=== PATIENT | male | born 1965 | race Two or more races ===

== ENCOUNTER 2025-03-19 10:19 | Emergency (ER) | payer MEDICAID, OTHER ==
[~2025-03-19] VITALS: Ht 193 cm; Wt 138.9 kg
--- NOTE | 2025-03-19 10:50 | ED.PDOC ---
History of Present Illness HPI Comments 59-year-old male brought in by private car requesting evaluation for alcohol dependence. Patient states his employer advised him he should seek help for alcohol dependence. Patient reports drinking 6 beers and a bottle of Tequila daily. He states he has done this for the past 30 years. His last drink was yesterday. States he currently feels anxious and shaky. He denies any pain, nausea/vomiting, seizure or loss of consciousness. 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 Constitutional: denies: chills, diaphoresis, fatigue, fever, malaise, sweats, weakness, others EENTM: denies: blurred vision, double vision, ear bleeding, ear discharge, ear drainage, ear pain, ear ringing, eye pain, eye redness, hearing loss, mouth pain, mouth swelling, nasal discharge, nose bleeding, nose congestion, nose pain, photophobia, tearing, throat pain, throat swelling, voice changes, others Respiratory: denies: cough, hemoptysis, orthopnea, SOB at rest, shortness of breath, SOB with excertion, stridor, wheezing, others Cardiovascular: denies: chest pain, dizzy spells, diaphoresis, Dyspnea on exertion, edema, irregular heart beat, left arm pain, lightheadedness, palpitations, PND, syncope, others Gastrointestinal: denies: abdomen distended, abdominal pain, blood streaked bowels, constipated, diarrhea, dysphagia, difficulty swallowing, hematemesis, melena, nausea, poor appetite, poor fluid intake, rectal bleeding, rectal pain, vomiting, others Genitourinary: denies: burning, dysuria, flank pain, frequency, hematuria, incontinence, penile discharge, penile sore, pain, testicle pain, testicle swelling, urgency, others Neurological: denies: dizziness, fainting, headache, left sided numbness, left sided weakness, numbness, paresthesia, pre-existing deficit, right sided numbness, right sided weakness, seizure, speech problems, tingling, tremors, weakness, others Musculoskeletal: denies: back pain, gout, joint pain, joint swelling, muscle pain, muscle stiffness, neck pain, others Integumetry: denies: bruises, change in color, change in hair/nails, dryness, laceration, lesions, lumps, rash, wounds, others Allergic/Immunocompromised: denies: Difficulty Healing, Frequent Infections, Hives, Itching, others Hematologic/Lymphatic: denies: anemia, blood clots, easy bleeding, easy bruising, swollen glands, others Endocrine: denies: excessive hunger, excessive sweating, excessive thirst, excessive urination, flushing, intolerance to cold, intolerance to heat, unexpl ained weight gain, unexplained weight loss, others Psychiatric: reports: anxiety; denies: bipolar disorder, depression, hopeless, panic disorder, schizophrenia, sleepless, suicidal, others All Other Systems: Reviewed and Negative (Comprehensive systems review obtained and negative except for what is stated in the HPI.) Physical Exam General Appearance: Mild Distress, Obese HEENT: Other (Pupils and face symmetric. Moist mucous membranes.) Neck: Full Range of Motion, Normal Inspection Respiratory: Lungs Clear, No Accessory Muscle Use, No Respiratory Distress, Normal Breath Sounds Cardiovascular: No Edema, No JVD, Regular Rate/Rhythm Breast Exam: Deferred Gastrointestinal: Non Tender, Soft Genitalia: Deferred Pelvic: Deferred Rectal: Deferred Extremities: Normal inspection, Normal range of motion, Non-tender, No pedal edema Neurologic: Alert (Oriented x4), Other (Anxious. Ambulatory. Mildly tremulous.) Cerebellar Function: NOT DONE Reflexes: NOT DONE Skin: Dry, Normal Color, Warm Lymphatic: NOT DONE Was a procedure done? Was a procedure done?: No Differential Dx Considerations may include: Alcohol withdrawal, anxiety, electrolyte imbalance, dehydration, alcohol/drug dependence/intoxication, among others X-Ray, Labs, Meds, VS Vital Signs Date Time Temp Pulse Resp B/P (MAP) Pulse Ox O2 Delivery O2 Flow Rate FiO2 03/19/25 15:09 75 18 127/77 (94) 95 03/19/25 13:20 67 18 119/67 (84) 97 8/14/25 11:25 Room Air* 0 21 03/19/25 11:20 98.4 69 18 131/80 (97) 95 98.4 03/19/25 11:16 96 17 95 Room Air 03/19/25 11:16 98.4 96 17 131/80 (97) 95 98.4 03/19/25 10:23 97.3 88 16 143/81 96 97.3 Lab Test 03/19/25 11:11 03/19/25 10:55 Range/Units White Blood Count 5.7 4.4-10.8 10^3/uL Red Blood Count 5.68 4.5-5.90 10^6/uL Hemoglobin 16.4 13.5-17.5 g/dL Hematocrit 46.7 41.0-53.0 % Mean Corpuscular Volume 82.2 80.0-100.0 fL Mean Corpuscular Hemoglobin 28.8 28.0-32.0 pg Mean Corpuscular Hemoglobin Concent 35.1 32.0-36.0 g/dL Red Cell Distribution Width 14.1 11.8-14.3 % Platelet Count 199 140-450 10^3/uL Mean Platelet Volume 7.2 6.9-10.8 fL Neutrophils (%) (Auto) 47.1 37.0-80.0 % Lymphocytes (%) (Auto) 39.2 10.0-50.0 % Monocytes (%) (Auto) 10.4 0.0-12.0 % Eosinophils (%) (Auto) 2.6 0.0-7.0 % Basophils (%) (Auto) 0.7 0.0-2.0 % Neutrophils # (Auto) 2.7 1.6-8.6 10 ^3/uL Lymphocytes # (Auto) 2.2 0.4-5.4 10 ^3/uL Monocytes # (Auto) 0.6 0-1.3 10 ^3/uL Eosinophils # (Auto) 0.1 0-0.8 10 ^3/uL Basophils # (Auto) 0 0-0.2 10 ^3/uL Nucleated Red Blood Cells 0.2 % Sodium Level 142 136-145 mmol/L Potassium Level 4.0 3.5-5.1 mmol/L Chloride Level 108 H 98-107 mmol/L Carbon Dioxide Level 25 20-31 mmol/L Anion Gap 9 5-15 Blood Urea Nitrogen 11 9-23 mg/dL Creatinine 1.21 0.700-1.30 mg/dL Glomerular Filtration Rate Calc 69 >90 mL/min BUN/Creatinine Ratio 9.1 L 10.0-20.0 Serum Glucose 92 74-106 mg/dL Calcium Level 8.9 8.7-10.4 mg/dL Plasma/Serum Blood Alcohol < 3.0 <10 mg/dL Urine Color Light-yellow Yellow Urine Clarity Clear Clear Urine pH 7.0 5.0-9.0 Urine Specific [place] 1.012 1.001-1.035 Urine Protein Negative Negative Urine Ketones Negative Negative Urine Blood Negative Negative /uL Urine Nitrite Negative Negative Urine Bilirubin Negative Negative Urine Urobilinogen Normal Negative mg/dL Urine Leukocyte Esterase Negative Negative /uL Urine RBC 4 0 - 3 /hpf Urine Microscopic WBC < 1 0-3 /HPF Urine Squamous Epithelial Cells Few <5 /hpf Urine Bacteria None seen None Seen /hpf Urine Glucose Normal Normal mg/dL Urine Opiates Screen Neg NEGATIVE Urine Fentanyl Screen Neg NEGATIVE Urine Barbiturates Screen Neg NEGATIVE Urine Phencyclidine Screen Neg NEGATIVE Urine Amphetamines Screen Neg NEGATIVE Urine Benzodiazepines Screen Neg NEGATIVE Urine Cocaine Screen Neg NEGATIVE Urine Cannabinoids Screen Neg NEGATIVE Current Medications Medications (Trade) Dose Ordered Sig/Jesica Route Start Time Stop Time Status Last Admin Lorazepam (Ativan Inj) 1 mg ONCE ONCE IV 03/19/25 10:45 03/19/25 10:46 DC 03/19/25 11:49 Sodium Chloride 1,000 ml @ 1,000 mls/hr Q1H ONCE IV 03/19/25 10:45 03/19/25 11:44 DC 03/19/25 11:20 Chlordiazepoxide HCl (Librium Capsule) 50 mg ONCE ONCE PO 03/19/25 10:45 03/19/25 10:46 DC 03/19/25 11:49 X-Ray, Labs, Meds, VS Comment 59-year-old male with a history of alcohol dependence in the hypertension referred by his employer to seek help with alcohol dependence. Patient notes feeling anxious and tremulous. Last drink was yesterday. Vitals remarkable for BP 143/81 Exam remarkable for anxious appearance and mild tremulousness Rhythm strip independently interpreted by me: Sinus rhythm, rate 88, no ectopy. CBC, basic metabolic panel, UA, serum alcohol, urine drug screen unremarkable Patient treated with the following in the ED: 1 L 0.9 normal saline IV bolus, Ativan 1 mg IV, Librium 50 mg p.o. On re-evaluation patient states he feels much better. He is no longer tremulous or anxious. Vitals were stable. Hospitalization was considered, however patient had rapid improvement of symptoms with treatment in the ED, patient stated he prefer not to be hospitalized, and I no longer feel hospitalization is absolutely necessary. Patient now appears stable for discharge with close outpatient follow-up with his primary physician and referrals to alcohol rehab. Rx Ativan, Librium Time of 1ST Reevaluation: 11:10 Reevaluation 1ST: Unchanged Time of 2ND Reevaluation: 13:19 Reevaluation 2ND: Improved Patient Education/Counseling: Diagnosis, Treatment, Need For Follow Up Family Education/Counseling: No Family Present SEPSIS Sepsis Screen Date sepsis recognized/suspect: Mar 19, 2025 Time Sepsis recognized/suspect: 1026 Recent Procedure: No On Antibiotic Therapy: No Respiratory Rate >20: No Heart Rate >90: No Temp<36 C (96.8 F) or >38.3 C: No SBP <90 or MAP <65 mmHG: No New Acute Mental Status Change: No Is the patient on CPAP, BIPAP,: No Physician Orders Electrocardigram (03/19/25 10:43) Saline Lock (03/19/25 10:50) * [employer] Consult (03/19/25 ) Vital Signs Date Time Temp Pulse Resp B/P (MAP) Pulse Ox O2 Delivery O2 Flow Rate FiO2 03/19/25 15:09 75 18 127/77 (94) 95 03/19/25 13:20 67 18 119/67 (84) 97 03/19/25 11:25 Room Air* 0 21 03/19/25 11:20 98.4 69 18 131/80 (97) 95 98.4 03/19/25 11:16 96 17 95 Room Air 03/19/25 11:16 98.4 96 17 131/80 (97) 95 98.4 03/19/25 10:23 97.3 88 16 143/81 96 97.3 Laboratory Tests Test 03/19/25 11:11 White Blood Count 5.7 10^3/uL (4.4-10.8) Medications Medications Dose Ordered Sig/Jesica Route Start Time Stop Time Status Last Admin Dose Admin Chlordiazepoxide HCl 50 mg ONCE ONCE PO 03/19/25 10:45 03/19/25 10:46 DC 03/19/25 11:49 Lorazepam 1 mg ONCE ONCE IV 03/19/25 10:45 03/19/25 10:46 DC 03/19/25 11:49 Sodium Chloride 1,000 ml @ 1,000 mls/hr Q1H ONCE IV 03/19/25 10:45 03/19/25 11:44 DC 03/19/25 11:20 Departure 1 Departure Time of Disposition: 13:19 Impression: Primary Impression: Alcohol withdrawal Qualified Codes: F10.930 - Alcohol use, unspecified with withdrawal, uncomplicated Disposition: HOME / SELF CARE / HOMELESS Condition: Stable Additional Instructions: Your blood tests were unremarkable. I have prescribed medication to prevent alcohol withdrawal. Follow-up with your primary doctor in 1-2 days. Follow-up with an alcohol rehabilitation facility as soon as possible. e-Prescriptions Chlordiazepoxide HCl (Chlordiazepoxide Hydrochl) 25 Mg Cap 1-2 MG PO TID PRN, #30 CAP Prn alcohol withdrawal symptoms Prov: ANA RUSSO MD 03/19/25 Lorazepam (Lorazepam) 1 Mg Tab 1 TAB PO TID PRN, #60 TAB Prn alcohol withdrawal symptoms Prov: ANA RUSSO MD 03/19/25 Discharged With: Relative Critical Care Note Critical Care Time?: No Stability Stability form required: No Heart Score Heart Score: Heart Score Response (Comments) Value History N/A 0 EKG N/A 0 Age N/A 0 Risk Factors N/A 0 Troponin N/A 0 Total 0 I personally scribed for ANA RUSSO MD ([email or web address]) on 03/19/25 at 10:56. Electronically submitted by Luther Cain ([email or web address]). ANA RUSSO MD Mar 19, 2025 10:50
[2025-03-19 11:20] VITALS: TEMP 98.4
[2025-03-19] MEDS: SODIUM CHLORIDE 0.9% 1,000 ML IV ONE (11:20)
[2025-03-19 11:27] LABS: Hematocrit 46.7 % (41.0-53.0); Hemoglobin 16.4 g/dL (13.5-17.5); Mean Corpuscular Hemoglobin 28.8 pg (28.0-32.0); Mean Corpuscular Volume 82.2 fL (80.0-100.0); Nucleated Red Blood Cells % 0.2 %
[2025-03-19 11:35] LABS: Anion Gap 9 (5-15); Carbon Dioxide 25 mmol/L (20-31); Potassium 4.0 mmol/L (3.5-5.1); Sodium 142 mmol/L (136-145)
[2025-03-19 11:36] LABS: Calcium 8.9 mg/dL (8.7-10.4)
[2025-03-19 11:39] LABS: Chloride 108 mmol/L (98-107)
[2025-03-19 11:40] LABS: Glucose 92 mg/dL (74-106)
[2025-03-19 11:41] LABS: BUN/Creatinine Ratio 9.1 (10.0-20.0); Blood Urea Nitrogen 11 mg/dL (9-23)
[2025-03-19] MEDS: LORazepam 2MG/ML-1ML VIAL IV ONE (11:49)
[2025-03-19 12:30] LABS: Urine Protein, UAD Negative (Negative)
[2025-03-19 12:43] LABS: Amphetamine Screen, Urine Neg (NEGATIVE); Barbiturate Scree,Urine Neg (NEGATIVE); Benzodiazephine Screen, Urine Neg (NEGATIVE)
[2025-03-19 12:44] LABS: Cannabinoid Screen, Urine Neg (NEGATIVE); Cocaine Screen, Urine Neg (NEGATIVE); Opiate Scree,Urine Neg (NEGATIVE); Phencyclidine Screen, Urine Neg (NEGATIVE)
[2025-03-19 15:09] VITALS: BP 127/77; PULSE 75; RESP 18; O2SAT 95
[2025-03-19] MEDS ORDERED: LORA-1123 PO (16:06)
[2025-03-19] MEDS ORDERED: CHLO25CA10 PO (16:06)
== END 2025-03-19 16:22 | disposition home or self-care (01) ==
LOC: ER 10:19
DX: F10.939 Alcohol use, unspecified with withdrawal, unspecified (principal); I10 Essential (primary) hypertension; Z87.891 Personal history of nicotine dependence; Z90.49 Acquired absence of other specified parts of digestive tract; Y90.9 Presence of alcohol in blood, level not specified
CPT/HCPCS: 36415; 80048; 80307; 80320; 81001; 85025; 96361; 96374; 99283; J2060; J7030